=== PATIENT | male | born 1980 | race Caucasian/White ===

== ENCOUNTER 2022-01-04 02:05 | Observation (INO) ==
[2022-01-04] MEDS ORDERED: ALUM/MAG/SIMETH/LIDO VISC 1:1 30 ML BOTTLE PO STA (02:28)
[2022-01-04] MEDS ORDERED: methylPREDNISolone SOD SUC 125 MG/2 ML VIAL IV STA (02:28)
[2022-01-04] MEDS ORDERED: ONDANSETRON 4 MG/2 ML VIAL IV STA (02:28)
[2022-01-04] MEDS ORDERED: ALBUTEROL/IPRATROPIUM 3 ML NEB RESP TX STA (02:28)
[2022-01-04] MEDS ORDERED: FUROSEMIDE 40 MG/4 ML VIAL IV STA (02:28)
[2022-01-04] MEDS ORDERED: ASPIRIN 325 MG TABLET PO STA (02:28)
[2022-01-04 02:49] LABS: Basophils # 0.1 10*3/uL (0.0-0.2); Basophils % 0.6 % (0.0-0.8); Eosinophils # 0.3 10*3/uL (0.0-0.87); Eosinophils % 2.4 % (0.00-10.9); Hematocrit 48.1 VOL% (42.0-52.0); Hemoglobin 16.2 GM/DL (14.0-18.0); Immature Granulocytes % 0.6 %; Immature Granulocytes Absolute 0.06 #; Lymphocytes # 3.5 10*3/uL (1.4-4.0); Lymphocytes % 32.6 % (21.2-54.2); Mean Corpuscular HGB Conc 33.7 GM/DL (32-36); Mean Corpuscular Volume 90.2 FL (87-102); Mean Platelet Volume 9.9 FL (9.6-12.0); Monocytes # 0.7 10*3/uL (0.11-0.8); Monocytes % 6.8 % (1.7-12.7); Platelet Count 342 T/CUMM (130-400); Red Blood Count 5.33 MC/CUMM (3.8-5.5); Red Cell Distribution Width 14.1 % (9.3-17.3); White Blood Count 10.6 T/CUMM (4-12)
[2022-01-04 03:02] LABS: PT Patient Result 11.3 SECS (10.5-12.0); Partial Thromboplastin Time 29.1 SECS (23.8-32.1)
[2022-01-04 03:10] LABS: Alanine Aminotransferase 42 U/L (16-61); Albumin 3.3 G/DL (3.4-5.0); Alkaline Phosphatase 69 U/L (45-117); Aspartate Amino Transferase 18 U/L (0-37); Bilirubin,Total < 0.39 MG/DL (0.20-1.00); Blood Urea Nitrogen 18 MG/DL (7-18); Calcium 9.3 MG/DL (8.5-10.1); Carbon Dioxide 24 MMOL/L (21-32); Chloride 110 MMOL/L (98-107); Estimated Glom Filtration Rate 175 ML/MIN; Glucose 124 MG/DL (74-106); Osmolality,Calculated 279.5 MOS/KG (273-304); Potassium 4.2 MMOL/L (3.5-5.1); Sodium 139 MMOL/L (136-145); Total Protein 6.6 G/DL (6.4-8.2)
[2022-01-04] MEDS ORDERED: METOPROLOL TARTRATE 25 MG TABLET PO STA (03:20)
[2022-01-04] MEDS ORDERED: DEXTROSE 10% 250 ML BAG IV PRN (04:57)
[2022-01-04] MEDS ORDERED: GLUCAGON 1 MG VIAL IM PRN (04:57)
[2022-01-04] MEDS ORDERED: ONDANSETRON 4 MG/2 ML VIAL IV PRN (04:57)
[2022-01-04] MEDS ORDERED: MORPHINE 2 MG/1 ML SYRINGE IV PRN (04:57)
[2022-01-04] MEDS ORDERED: NICOTINE 21 MG/24 HR PATCH TRANSDERM PRN (04:57)
[2022-01-04] MEDS ORDERED: hydrALAZINE 20 MG/1 ML VIAL IV PRN (04:57)
[2022-01-04] MEDS ORDERED: ACETAMINOPHEN 325 MG TABLET PO PRN (04:57)
[2022-01-04 05:32] LABS: Thyroid Stimulating Hormone 2.69 uIU/ml (0.358-3.74)
[2022-01-04] MEDS: ALBUTEROL/IPRATROPIUM 3 ML NEB RESP TX SCH ×3 (06:48→19:42)
[2022-01-04] MEDS: ENOXAPARIN 40 MG/0.4 ML SYRINGE SUBCUT SCH (09:21)
[2022-01-04] MEDS: ASPIRIN EC 81 MG TABLET PO SCH (09:21)
[2022-01-04] MEDS: PANTOPRAZOLE 40 MG TABLET PO SCH (09:21)
[2022-01-04] MEDS: LOSARTAN 25 MG TABLET PO SCH (09:22)
[2022-01-04] MEDS: methylPREDNISolone SOD SUC 40 MG/1 ML VIAL IV SCH ×2 (09:22→20:51)
[2022-01-04] MEDS ORDERED: SODIUM CHLORIDE 0.9% 1,000 ML IV SCH (10:00)
[2022-01-04 10:18] LABS: Barbiturates Screen,Urine Negative (Negative); Benzodiazepines Screen,Urine Negative (Negative); Cannabinoid Screen,Urine Negative (Negative); Opiate Screen,Urine Negative (Negative); Phencyclidine Screen,Urine Negative (Negative)
[2022-01-04] MEDS ORDERED: fentaNYL 100 MCG/2 ML VIAL ONE (10:33)
[2022-01-04] MEDS ORDERED: MIDAZOLAM 2 MG/2 ML VIAL ONE ×2 (10:33→11:13)
[2022-01-04] MEDS ORDERED: VERAPAMIL 5 MG/2 ML VIAL ONE (10:36)
[2022-01-04] MEDS ORDERED: NITROGLYCERIN DRIP 50 MG/250 ML BOTTLE IV ONE (10:36)
[2022-01-04] MEDS ORDERED: HEPARIN 5,000 UNIT/1 ML VIAL ONE (10:36)
[2022-01-04] MEDS ORDERED: HYDROmorphone 1 MG/1 ML SYRINGE ONE (11:31)
[2022-01-05] MEDS: ALBUTEROL/IPRATROPIUM 3 ML NEB RESP TX SCH ×2 (01:06→07:05)
[2022-01-05 04:58] LABS: Calcium 8.9 MG/DL (8.5-10.1); Osmolality,Calculated 281.7 MOS/KG (273-304); Potassium 4.1 MMOL/L (3.5-5.1)
[2022-01-05] MEDS: methylPREDNISolone SOD SUC 40 MG/1 ML VIAL IV SCH ×2 (06:21→11:49)
[2022-01-05] MEDS: PANTOPRAZOLE 40 MG TABLET PO SCH (11:00)
[2022-01-05] MEDS: ENOXAPARIN 40 MG/0.4 ML SYRINGE SUBCUT SCH (11:00)
[2022-01-05] MEDS: ASPIRIN EC 81 MG TABLET PO SCH (11:00)
[2022-01-05] MEDS: LOSARTAN 25 MG TABLET PO SCH (11:00)
[2022-01-05 12:25] VITALS: BP 117/88
== END 2022-01-05 12:04 | disposition home or self-care (01) ==
LOC: N.ED 02:05 → N.EDINP 02:05 → SUATTDRO 04:57 → N.EDINP 10:00 → N.TELEN 12:23
PROVIDERS: ADMIT Internal Medicine; ATTEND Internal Medicine
PROC: CLCCHCL (ICD-10-PCS; 2022-01-04 10:15)

== ENCOUNTER 2022-08-14 21:37 | Observation (INO) ==
[2022-08-15 01:20] LABS: Basophils # 0.1 10*3/uL (0.0-0.2); Basophils % 0.5 % (0.0-0.8); Eosinophils # 0.5 10*3/uL (0.0-0.87); Eosinophils % 4.2 % (0.00-10.9); Hematocrit 43.7 VOL% (42.0-52.0); Hemoglobin 14.1 GM/DL (14.0-18.0); Immature Granulocytes % 0.4 %; Immature Granulocytes Absolute 0.04 #; Lymphocytes # 3.4 10*3/uL (1.4-4.0); Lymphocytes % 31.9 % (21.2-54.2); Mean Corpuscular HGB Conc 32.3 GM/DL (32-36); Mean Corpuscular Volume 93.6 FL (87-102); Mean Platelet Volume 10.1 FL (9.6-12.0); Monocytes # 0.7 10*3/uL (0.11-0.8); Monocytes % 6.2 % (1.7-12.7); Neutrophils % 56.8 % (38.7-73.9); Platelet Count 287 T/CUMM (130-400); Red Blood Count 4.67 MC/CUMM (3.8-5.5); Red Cell Distribution Width 13.8 % (9.3-17.3); White Blood Count 10.7 T/CUMM (4-12)
[2022-08-15 01:31] LABS: PT Patient Result 11.3 SECS (10.1-12.1); Partial Thromboplastin Time 27.9 SECS (23.7-32.9)
[2022-08-15 01:40] LABS: Alanine Aminotransferase 44 U/L (16-61); Albumin 3.4 G/DL (3.4-5.0); Alkaline Phosphatase 68 U/L (45-117); Aspartate Amino Transferase 37 U/L (0-37); Bilirubin,Total < 0.39 MG/DL (0.20-1.00); Blood Urea Nitrogen 18 MG/DL (7-18); Carbon Dioxide 27 MMOL/L (21-32); Chloride 111 MMOL/L (98-107); Glucose 98 MG/DL (74-106); Potassium 3.7 MMOL/L (3.5-5.1); Sodium 143 MMOL/L (136-145); Total Protein 6.5 G/DL (6.4-8.2)
[2022-08-15] MEDS ORDERED: MAGNESIUM CHLORIDE 64 MG TABLET PO STA (02:05)
[2022-08-15] MEDS ORDERED: ONDANSETRON 4 MG/2 ML VIAL IV PRN (04:36)
[2022-08-15] MEDS ORDERED: ACETAMINOPHEN 325 MG TABLET PO PRN (04:36)
[2022-08-15] MEDS ORDERED: NICOTINE 21 MG/24 HR PATCH TRANSDERM PRN (04:59)
[2022-08-15] MEDS ORDERED: MAGNESIUM SULF RIDER 2 GM/50 ML PREMIX IV ONE (05:00)
[2022-08-15] MEDS: PANTOPRAZOLE 40 MG TABLET PO SCH (09:57)
[2022-08-15] MEDS ORDERED: ENOXAPARIN 40 MG/0.4 ML SYRINGE SUBCUT SCH (21:00)
[2022-08-16] MEDS ORDERED: CLOPIDOGREL 75 MG TABLET PO SCH (09:00)
[2022-08-16] MEDS ORDERED: ASPIRIN EC 81 MG TABLET PO SCH (09:00)
[2022-08-16] MEDS ORDERED: ATORVASTATIN 80 MG TABLET PO SCH (09:00)
[2022-08-16] MEDS: PANTOPRAZOLE 40 MG TABLET PO SCH (11:30)
[2022-08-16 15:30] VITALS: BP 126/67
== END 2022-08-16 16:48 | disposition home or self-care (01) ==
LOC: N.ED 21:37 → N.EDINP 21:37 → N.3E 08-15 06:29
PROVIDERS: ADMIT Family Medicine; ATTEND Family Medicine